=== PATIENT | female | born 1995 | race Caucasian/White ===

== ENCOUNTER 2016-12-02 16:15 | Emergency (ER) | payer BC ==
[~2016-12-02] VITALS: Wt 81.0 kg
[~2016-12-02 16:15] MED LIST: ALBU18HF INHALATION; AZIT250T94 PO
[2016-12-02] MEDS ORDERED: HYDROCODONE/APAP (5/325) TAB PO ONE (17:30)
[2016-12-02] MEDS ORDERED: IBUPROFEN 600 MG TAB PO ONE (17:30)
[2016-12-02 17:45] LABS: URINE BLOOD (Dip) POC Negative (NEGATIVE)
--- NOTE | 2016-12-02 18:32 | RADRPT ---
PROCEDURE: Lumbar Spine. CLINICAL INDICATION: Back pain. TECHNIQUE: 4 views of the lumbar spine. COMPARISON: None available FINDINGS: The lumbar lordosis is preserved without spondylolisthesis. The vertebral body heights are maintaine d. No acute fracture or subluxation is seen. There are no degenerative changes. IMPRESSION: 1. Normal lumbar spine radiographs. RPTAT: HTAR .Nico Billings MD, Date Time Electronically viewed and signed by .Nico Billings MD, on 12/02/2016 18:32 .R/
[2016-12-02] MEDS ORDERED: IBUP-1542 PO (18:43)
[2016-12-02] MEDS ORDERED: HYDR-906 PO (18:43)
--- NOTE | 2016-12-02 18:46 | ERD ---
ER Documentation Chief Complaint Date/Time DATE: 12/02/16 TIME: 18:45 Chief Complaint BACK PAIN AFTER FALL HPI This 20-year-old female slipped down some stairs yesterday and complains of back pain primarily in the mid to right lower back. She denies any bowel or bladder incontinence, weakness, bleeding. She denies hematuria. ROS All systems reviewed and are negative except as per history of present illness. Medications Home Meds Active Scripts Ibuprofen* (Motrin*) 600 Mg Tab, 600 MG PO Q6, #20 TAB Prov:JAMESON MILLER MD 12/02/16 Hydrocodone/Acetaminophen ([place] 5-325 Tablet) 1 Each Tablet, 1 TAB PO Q6H Y for PAIN, #12 TAB Prov:JAMESON MILLER MD 12/02/16 Albuterol Sulfate* (Ventolin HFA*) 18 Gm Hfa.aer.ad, 2 PUFF INHALATION Q4H, #1 INHALER Prov:KALYN SKELTON DO 07/22/16 Azithromycin* (Zithromax*) 250 Mg Tablet, 250 MG PO .ZPACK DIRECTED, #6 TAB TAKE 500 MG (2 TABS) THE FIRST DAY THEN 250 MG (1 TAB) DAYS 2-5 Prov:KALYN SKELTON DO 07/22/16 Allergies Allergies: Coded Allergies: No Known Drug Allergies (Verified Allergy, Unknown, 07/27/16) PMhx/Soc Medical and Surgical Hx: pt denies Medical Hx, pt denies Surgical Hx Hx Alcohol Use: Yes Hx Substance Use: Yes Hx Tobacco Use: No Physical Exam Vitals Vital Signs Date Time Temp Pulse Resp B/P Pulse Ox O2 Delivery O2 Flow Rate FiO2 12/02/16 16:19 98.0 89 107/60 99 Physical Exam Const: [] Alert, [id number]. Head: Atraumatic Eyes: Normal Conjunctiva ENT: Normal External Ears, Nose and Mouth. Neck: Full range of motion..~ No meningismus. Resp: Clear to auscultation bilaterally Cardio: Regular rate and rhythm, no murmurs Abd: Soft, non tender, non distended. Normal bowel sounds Skin: No petechiae or rashes Back: No midline or flank tenderness. Tenderness primarily in the right L2- L3 paraspinous muscles. No appreciable midline tenderness or deformities. Patient is amatory without deficits or weakness. Ext: No cyanosis, or edema Neur: Awake and alert Psych: Normal Mood and Affect Results 24 hrs Laboratory Tests Test 12/02/16 17:48 Bedside Urine Blood Negative Bedside Urine Glucose (UA) Negative Bedside Urine Ketones (LAB) Negative Bedside Urine Leukocyte Esterase (L Negative Bedside Urine Nitrite (LAB) Negative Bedside Urine Protein (LAB) Negative Bedside Urine pH (LAB) 7.0 Current Medications Medications (Trade) Dose Ordered Sig/Jessica Route PRN Reason Start Time Stop Time Status Last Admin Dose Admin Acetaminophen/ Hydrocodone Bitart ([place] (5/325)) 1 tab ONCE ONCE PO 12/02/16 17:30 12/02/16 17:31 DC 12/02/16 17:40 Ibuprofen (Motrin) 600 mg ONCE ONCE PO 12/02/16 17:30 12/02/16 17:31 DC 12/02/16 17:40 Procedures/MDM X-ray LS-Spine 3V Interpreted by me: Bones: No fracture, or lytic lesions Joints: No dislocation Foreign body: None. Impression-normal lumbar spine is Patient was given ibuprofen and [place] for pain. Patient has signs and symptoms of lower back contusion without evidence of fracture, dislocation, tendon or neurologic deficit, bowel or bladder contour cauda equina syndrome or bacterial infection. She will treated with a short course of ibuprofen and [place] Bernard instructions for back exercises. Patient was advised to follow-up with primary doctor return to the ER for new or worsening symptoms. Departure Diagnosis: Primary Impression: Injury of back Encounter type: initial encounter Qualified Code: S39.92XA - Injury of back , initial encounter Condition: Stable Patient Instructions: Back Exercises, Lumbar, Back Sprain/Strain Referrals: NO PRIMARY,CARE PHYSICIAN (PCP) Additional Instructions: X-ray read as normal. Recommend ice and stretching and follow-up with primary doctor for further evaluation. Return for fevers, new worsening symptoms. JAMESON MILLER MD Dec 02, 2016 18:46
[2016-12-02 19:22] VITALS: BP 115/62; PULSE 82; RESP 16; TEMP 98.4
== END 2016-12-02 19:26 | disposition home or self-care (01) ==
LOC: FTE 16:15
DX: S39.92XA Unspecified injury of lower back, initial encounter (principal); W10.9XXA Fall (on) (from) unspecified stairs and steps, initial encounter; Y92.9 Unspecified place or not applicable
CPT/HCPCS: 72100; 81003

== ENCOUNTER 2016-12-05 09:05 | Emergency (ER) | payer BC ==
[~2016-12-05] VITALS: Ht 177.8 cm; Wt 78.0 kg
[~2016-12-05 09:05] MED LIST changes: +HYDR-906 PO; +IBUP-1542 PO
[2016-12-05 09:12] VITALS: Ht 177.8 cm; Wt 78.0 kg
[2016-12-06] MEDS ORDERED: CARI350T PO (04:13)
== END 2016-12-05 11:17 | disposition left against medical advice (07) ==
LOC: FTE 09:05
DX: Z53.21 Procedure and treatment not carried out due to patient leaving prior to being seen by health care provider (principal)

== ENCOUNTER 2016-12-05 23:59 | Emergency (ER) | payer BC ==
[~2016-12-05] VITALS: Ht 177.8 cm; Wt 86.5 kg
[2016-12-06 00:03] VITALS: Ht 177.8 cm; Wt 86.5 kg
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
[2016-12-06] MEDS ORDERED: ONDANSETRON (ODT) 4 MG TAB ODT STA (02:46)
[2016-12-06] MEDS ORDERED: HYDROCODONE/APAP (10/325) TAB PO ONE (03:00)
[2016-12-06 03:54] LABS: URINE BLOOD (Dip) POC Negative (NEGATIVE)
[2016-12-06] MEDS ORDERED: CARI350T PO (04:13)
== END 2016-12-06 04:14 | disposition home or self-care (01) ==
LOC: FTE 23:59
DX: S39.92XD Unspecified injury of lower back, subsequent encounter (principal); Y04.8XXD Assault by other bodily force, subsequent encounter
CPT/HCPCS: 81003; 99283